=== PATIENT | female | born 1990 | race Caucasian/White ===

== ENCOUNTER 2018-10-08 08:10 | Emergency (ER) | payer BC, OTHER ==
--- NOTE | 2018-10-08 08:42 | RADIOLOGY REPORT (SQ) ---
EXAM DESCRIPTION: SHOULDER RIGHT 2 OR MORE VIEWS COMPLETED DATE/TIME: 10/08/2018 8:31 am REASON FOR STUDY: pulled shoulder out COMPARISON: None. NUMBER OF VIEWS: Three views. TECHNIQUE: Internal rotation, external rotation, and Y view images acquired of the right shoulder. LIMITATIONS: None. FINDINGS: MINERALIZATION: Normal. BONES: No acute fracture. No worrisome bone lesions. JOINTS: Anterior dislocation of the humeral head. VISUALIZED LUNGS AND RIBS: No pneumothorax. No rib fracture. SOFT TISSUES: No radiopaque foreign body. OTHER: No other significant finding. IMPRESSION: ANTERIOR DISLOCATION. NO FRACTURE VISUALIZED. TECHNICAL DOCUMENTATION: JOB ID: [id number] [employer]- All Rights Reserved Reading location - IP/workstation name: [email or web address]
[2018-10-08] MEDS ORDERED: ONDANSETRON HCL INJ/PF 4 MG/2 ML SDV IV ONE (08:47)
[2018-10-08] MEDS ORDERED: HYDROMORPHONE HCL INJ/PF 2 MG/ML AMPULE IV ONE (08:47)
[2018-10-08] MEDS ORDERED: NORMAL SALINE 1000 ML 1,000 ML IV ONE (08:48)
--- NOTE | 2018-10-08 08:55 | ER Document Report ---
ED Extremity Problem, Upper - General Chief Complaint: Shoulder Pain Stated Complaint: SHOULDER INJURY Time Seen by Provider: 10/08/18 08:45 Notes: 28-year-old female presents to the ER with severe shoulder pain. Her dogs were fighting this morning and she went to pull them apart and she felt a sudden severe 10 out of 10 pain in the right shoulder. Patient is coming to the ER requesting assistance. Describes the pain as sharp aching 10/10. Is worse to move or anything. She denies falling hitting her head or neck or have any loss of consciousness. Patient denies any chest pain no abdominal pain. Denies any numbness or tingling in her fingers. TRAVEL OUTSIDE OF THE [place] IN LAST 30 DAYS: No - Related Data Allergies/Adverse Reactions: amoxicillin Allergy (Verified 12/11/15 08:17) Past Medical History - Social History Smoking Status: Never Smoker Family History: Reviewed & Not Pertinent Pulmonary Medical History: Reports: Hx Asthma Renal/ Medical History: Reports: Hx Kidney Stones Past Surgical History: Reports: Hx Orthopedic Surgery, Hx Urinary Tract Surgery - Kidney stone removal Review of Systems - Review of Systems Constitutional: denies: Chills, Fever EENT: denies: Throat pain Cardiovascular: denies: Chest pain Respiratory: denies: Cough, Short of breath Gastrointestinal: denies: Abdominal pain Musculoskeletal: Joint pain, Deformity Neurological/Psychological: denies: Headaches -: Yes All other systems reviewed and negative Physical Exam - Vital signs Vitals: Pulse Ox 100 10/08/18 09:02 - Notes Notes: GENERAL_APPEARANCE: well_nourished, alert, cooperative, uncomfortable obviously in pain VITALS: reviewed, see vital signs table. HEAD: no_swelling\tenderness on the head. EYES: PERRL, EOMI, conjunctiva_clear. NOSE: no_nasal_discharge. MOUTH: (-)decreased moisture. THROAT: no_tonsilar_inflammation, no_airway_obstruction. no_lymphadenopathy NECK: supple, no_neck_tenderness, (-)thyromegaly. BACK: no_back_tenderness. CHEST_WALL: no_chest_tenderness. LUNGS: no_wheezing, no_rales, no_rhonchi, (-)accessory muscle use, good air exchange bilateral. HEART: normal_rate, normal_rhythm, normal_S1, normal_S2, (-)S3, (-)S4, no_murmur, no_rub. ABDOMEN: normal_BS, soft, no_abd_tenderness, (-)guarding, (-)rebound, no_organomegaly, no_abd_masses. EXTREMITIES: Right shoulder is obviously deformed. Clinically anterior dislocation strong radial and ulnar pulses no numbness or tingling at the fingertips brisk capillary refill. SKIN: warm, dry, good_color, no_rash. MENTAL_STATUS: speech_clear, oriented_X_3, normal_affect, responds_appropriately to questions. NEURO: Neg Motor or Sensory Deficits on exam, CN 2-12 intact Course - Re-evaluation Re-evalutation: 10/08/18 08:54 28-year-old female presents to the ER with anterior shoulder dislocation on the right. She did just trying to pull apart her dogs were fighting the patient complains of severe pain and IV will be started she will be given Dilaudid and Zofran. We will then use propofol for sedation. - Vital Signs Vital signs: Temp Pulse Resp BP Pulse Ox 98 F 16 143/96 H 100 10/08/18 09:04 10/08/18 10:45 10/08/18 11:00 10/08/18 11:15 Procedures - Conscious Sedation Conscious sedation Consent obtained: Yes Prior complications: Procedural sedation Normal healthy pt.: P1. - ASA Classification Airway Evaluation: Normal anatomy Mallampati Classification: Class 2 Used during procedure: Suction available, IV access obtained, Pulse ox on pt., console assembler on pt. Medications administered: Diprivan I personally performed/intraservice time: Sedation, 30 min or less Complications: No - Joint Reduction/Fracture Care Right Shoulder Consent obtained: Yes Conscious sedation: Yes Pre-procedure NV exam: Yes Post-procedure NV exam: Yes Post-reduction x-ray: Joint reduced Reduction attempts: 1 Complications: No Notes: 10/08/18 11:52 Using traction countertraction on the right humerus the shoulder was reduced without complication done on first attempt. No numbness or tingling before or after episode. Discharge - Discharge Clinical Impression: Anterior dislocation of right shoulder Qualifiers: Encounter type: initial encounter Qualified Code(s): S43.014A - Anterior dislocation of right humerus, initial encounter Condition: Good Disposition: HOME, SELF-CARE Instructions: Shoulder Dislocation ([facility]) Additional Instructions: Keep the sling on for a week. Begin moving the arm immediately you may come out of the sling in about a week be careful extending her arm or reaching to the side. Follow-up with orthopedics for further care you may need further physical therapy. Prescriptions: Diclofenac Sodium [Voltaren] 75 mg PO BID PRN #20 tablet.dr ROJAS Reason: Pain Scale Of 5 Referrals: DENISE LOVE DO [ACTIVE STAFF] - Follow up as needed
[2018-10-08] MEDS ORDERED: PROPOFOL INJ 200 MG/20 ML VIAL IV ONE (09:40)
--- NOTE | 2018-10-08 10:35 | RADIOLOGY REPORT (SQ) ---
EXAM DESCRIPTION: SHOULDER RIGHT 1 VIEW COMPLETED DATE/TIME: 10/08/2018 10:23 am REASON FOR STUDY: post reduct COMPARISON: None. NUMBER OF VIEWS: One view. TECHNIQUE: Frontal images acquired of the right shoulder. LIMITATIONS: None. FINDINGS: MINERALIZATION: Normal. BONES: No acute fracture. No worrisome bone lesions. JOINTS: Satisfactory position following closed reduction. VISUALIZED LUNGS AND RIBS: No pneumothorax. No rib fracture. SOFT TISSUES: No radiopaque foreign body. OTHER: No other significant finding. IMPRESSION: SATISFACTORY POSITION FOLLOWING CLOSED REDUCTION. NO FRACTURE VISUALIZED. TECHNICAL DOCUMENTATION: JOB ID: [id number] [employer]- All Rights Reserved Reading location - IP/workstation name: [email or web address]
[2018-10-08 12:36] VITALS: BP 140/74
== END 2018-10-08 12:36 | disposition home or self-care (01) ==
LOC: ER 08:10
PROC: 0RSJXZZ Reposition Right Shoulder Joint, External Approach (ICD-10-PCS; principal; 2018-10-08)
DX: S43.014A Anterior dislocation of right humerus, initial encounter (principal); M25.511 Pain in right shoulder; X50.9XXA Other and unspecified overexertion or strenuous movements or postures, initial encounter; J45.909 Unspecified asthma, uncomplicated
CPT/HCPCS: 73020; 73030; 23650; L3650; J1170; J2405; J7030; J2704; 96361; 96374; 96375; 99283; 99152